=== PATIENT | male | born 2000 | race American Indian/Alaskan Native ===

== ENCOUNTER 2020-12-07 22:27 | Emergency (ER) | payer SELFPAY ==
[2020-12-08 00:44] VITALS: BP 124/56
[2020-12-08 01:23] LABS: Bilirubin,Urine NEG (Negative); Blood,Urine NEG (Negative); Color,Urine Amber (Yellow); Mucus,Urine 3+ /HPF
[2020-12-08 01:24] LABS: WBC,Urine > 182.0 /HPF (0.0-6.0)
[2020-12-08 01:24] LABS: Basophils % (Auto) 0.2 % (0.0-1.8); Eosinophils % (Auto) 0.1 % (0.0-4.3); Hematocrit 43.5 % (35.5-45.6); Hemoglobin 15.1 gm/dl (11.8-15.2); Lymphocytes # (Auto) 0.8 K/mm3 (1.2-5.4); Lymphocytes % (Auto) 8.9 % (13.4-35.0); Mean Corpuscular HGB Conc 35 % (32-34); Mean Corpuscular Volume 85 fl (84-94); Monocytes # (Auto) 0.7 K/mm3 (0.0-0.8); Monocytes % (Auto) 7.5 % (0.0-7.3); Platelet Count 163 K/mm3 (140-440); Red Blood Count 5.14 M/mm3 (3.65-5.03); Red Cell Distribution Width 14.8 % (13.2-15.2)
[2020-12-08 01:39] LABS: Alanine Aminotransferase 7 units/L (7-56); Albumin 4.7 g/dL (3.9-5); BUN/Creatinine Ratio 12; Blood Urea Nitrogen 11 mg/dL (9-20); Calcium 9.3 mg/dL (8.4-10.2); Hemolysis Index 5
--- NOTE | 2020-12-08 02:57 | Emergency Department Report ---
ED Male HPI - General Chief complaint: Abdominal Pain Stated complaint: ABD PAIN Source: patient Mode of arrival: Ambulatory Limitations: No Limitations - History of Present Illness Initial comments: Patient is a 20-year-old -[place] male with no past medical history e xcept OCD and autism who presents to the ED with complaint of acute onset persistent dysuria, suprapubic pain, hematuria, urine frequency and urgency, penile discharge, low back pain, fever and chills for the last 1 week. Patient states that the symptoms have worsened in the last 24 hours such that he is unable to sleep because of worsening chills and fever. Patient denies testicular pain, chest pain, shortness of breath, sore throat, nausea, vomiting, diarrhea, dizziness, syncope, traumatic injury or heavy lifting, hematemesis or hematochezia. MD Complaint: penile discharge, dysuria, other (Severe low back pain, chills; suprapubic pain) -: Sudden, week(s) (1) Location: penis, left flank, abdomen Radiation: other (lower back ) Severity: severe Severity scale (0 -10): 7 Quality: aching, sharp Consistency: constant Improves with: none Worsens with: urination, movement denies other symptoms, discharge, blood in urine, dysuria, fever, other (chills and low back pain). denies: swelling, mass, rash, urinary retention, nausea/vomiting, incontinence - Related Data Sexually active: Yes Previous Rx's Medication Instructions Recorded Last Taken Type Doxycycline Hyclate 100 mg PO Q12H #28 tablet. 12/08/20 Unknown Rx Ibuprofen [Motrin] 600 mg PO Q8H PRN #30 tablet 12/08/20 Unknown Rx Ondansetron [Zofran Odt] 4 mg PO Q8HR PRN #15 tab.rapdis 12/08/20 Unknown Rx Phenazopyridine [Pyridium] 200 mg PO BID #14 tab 12/08/20 Unknown Rx Allergies Allergy/AdvReac Type Severity Reaction Status Date / Time seafood Allergy Hives Uncoded 12/08/20 00:42 ED Review of Systems ROS: Stated complaint: ABD PAIN Other details as noted in HPI Constitutional: chills, fever, malaise Eyes: denies: eye pain, eye discharge, vision change ENT: denies: ear pain, throat pain Respiratory: denies: cough, shortness of breath, wheezing Cardiovascular: denies: chest pain, palpitations Endocrine: no symptoms reported Gastrointestinal: abdominal pain (suprapubic). denies: nausea, vomiting, diarrhea, constipation, hematemesis, hematochezia Genitourinary: urgency, dysuria, frequency, hematuria, discharge. denies: testicular pain, testicular mass Musculoskeletal: back pain (lower back pain). denies: joint swelling, arthralgia Skin: denies: rash, lesions Neurological: denies: headache, weakness, paresthesias Psychiatric: denies: anxiety, depression Hematological/Lymphatic: denies: easy bleeding, easy bruising ED Past Medical Hx - Past Medical History Previous Medical History?: Yes Hx Psychiatric Treatment: Yes (Autism, OCD) - Surgical History Past Surgical History?: No - Social History Smoking Status: Current Every Day Smoker Substance Use Type: Marijuana - Medications Home Medications: Home Medications Medication Instructions Recorded Confirmed Last Taken Type Doxycycline Hyclate 100 mg PO Q12H #28 tablet.dr 12/08/20 Unknown Rx Ibuprofen [Motrin] 600 mg PO Q8H PRN #30 tablet 12/08/20 Unknown Rx Ondansetron [Zofran Odt] 4 mg PO Q8HR PRN #15 tab.rapdis 12/08/20 Unknown Rx Phenazopyridine [Pyridium] 200 mg PO BID #14 tab 12/08/20 Unknown Rx ED Physical Exam - General Limitations: No Limitations General appearance: alert, in no apparent distress - Head Head exam: Present: atraumatic, normocephalic, normal inspection - Eye Eye exam: Present: normal appearance, PERRL, EOMI Pupils: Present: normal accommodation - ENT ENT exam: Present: normal exam, normal orophraynx, mucous membranes moist, TM's normal bilaterally, normal external ear exam - Neck Neck exam: Present: normal inspection, full ROM - Respiratory Respiratory exam: Present: normal lung sounds bilaterally. Absent: respiratory distress, wheezes, rales, rhonchi, chest wall tenderness, accessory muscle use, prolonged expiratory - Cardiovascular Cardiovascular Exam: Present: regular rate, normal rhythm, normal heart sounds. Absent: systolic murmur, diastolic murmur, rubs, gallop - GI/Abdominal GI/Abdominal exam: Present: soft, tenderness (Palpable suprapubic and bilateral flank tenderness), normal bowel sounds. Absent: guarding, rebound, hyperactive bowel sounds, organomegaly, mass - exam: Present: normal inspection External exam: Present: normal external exam, other (Genital exam is unremarkable) - Extremities Exam Extremities exam: Present: normal inspection, full ROM, normal capillary refill - Back Exam Back exam: Present: normal inspection, full ROM, tenderness (Palpable lumbosacr al paraspinal musculoskeletal tenderness; bilateral CVA tenderness), CVA tenderness (R), CVA tenderness (L), muscle spasm, paraspinal tenderness. Absent: vertebral tenderness, rash noted - Neurological Exam Neurological exam: Present: alert, oriented X3, CN II-XII intact, normal gait, reflexes normal - Psychiatric Psychiatric exam: Present: normal affect, normal mood - Skin Skin exam: Present: warm, dry, intact, normal color. Absent: rash ED Course Vital Signs 12/08/20 12/08/20 00:41 03:19 Temperature 100.3 F H Pulse Rate 73 Respiratory 18 18 Rate Blood Pressure 124/56 O2 Sat by Pulse 98 Oximetry ED Medical Decision Making - Lab Data Result diagrams: 12/08/20 00:56 12/08/20 00:56 - Radiology Data Radiology results: report reviewed, image reviewed Study Comments [facility] [address] [place] [address] Cat Scan Report Signed Patient: DALLAS IVAN MR#: [id number] : 2000 Acct:[id number] Age/Sex: 20 / M ADM Date: 12/07/20 Loc: ED Attending Dr: Ordering Physician: CHRIS COOPER Date of Service: 12/08/20 Procedure(s): CT abdomen pelvis wo con Accession Number(s): [id number] cc: CHRIS COOPER CT ABDOMEN AND PELVIS WITHOUT CONTRAST INDICATION / CLINICAL INFORMATION: flank pain. TECHNIQUE: Axial CT images were obtained through the abdomen and pelvis without IV contrast. All CT scans at this location are performed using CT dose reduction for ALARA by means of automated exposure control. COMPARISON: None available. FINDINGS: LOWER CHEST: No significant abnormality. LIVER: No significant abnormality. GALLBLADDER: No significant abnormality. BILE DUCTS: No significant abnormality. PANCREAS: No significant abnormality. SPLEEN: No significant abnormality. ADRENALS: No significant abnormality. RIGHT KIDNEY and URETER: No significant abnormality. LEFT KIDNEY and URETER: No significant abnormality. STOMACH and SMALL BOWEL: No significant abnormality. COLON: No significant abnormality. APPENDIX: Not well identified. PERITONEUM: No free fluid. No free air. No fluid collection. LYMPH NODES: No significant adenopathy. AORTA and ARTERIES: No significant abnormality. IVC and VEINS: No significant abnormality. URINARY BLADDER: No significant abnormality. REPRODUCTIVE ORGANS: No significant abnormality. ADDITIONAL FINDINGS: None. SKELETAL SYSTEM: No significant abnormality. IMPRESSION: Nonspecific inguinal adenopathy Signer Name: Chris Moreno MD Signed: 12/08/2020 3:26 AM Workstation Name: [id number] Transcribed By: Dictated By: Chris Moreno MD Electronically Authenticated By: Chris Moreno MD Signed Date/Time: 12/08/20325 DD/ 3 TD/TT: - Medical Decision Making This is a 20-year-old -[place] male with no past medical history except OCD and autism who presents to the ED with complaint of acute onset persistent dysuria, suprapubic pain, hematuria, urine frequency and urgency, penile discharge, low back pain, fever and chills for the last 1 week. Patient states that the symptoms have worsened in the last 24 hours such that he is unable to sleep because of worsening chills and fever. In the ED, patient is alert and oriented x3 and is not in any distress. Patient is however febrile in triage. All lab test results were reviewed and are all nonactionable except for urinalysis that showed significant infection consistent with urinary tract infection, urethritis or STD. Abdomen pelvis CT scan without contrast showed no acute abnormalities. Patient was treated in the ED for pain, also treated empirically for suspected gonorrhea urethritis with Rocephin 1 g intramuscular injection. On reevaluation, patient's pain is well controlled medication. Fever resolved with medications and patient felt better. Patient was discharged home on antibiotics, doxycycline 100 mg every 12 hours for 2 weeks, pain medications and antiemetics. Patient was advised to follow-up with the [facility] department for further STD testing including HIV and syphilis test. Patient was also advised to encourage his sexual partner to be treated at the [facility]. Patient was advised return to the ED immediately if symptoms get worse. - Differential Diagnosis Kidney stone; gonococcal urethritis; chlamydia urethritis; UTI Critical care attestation.: If time is entered above; I have spent that time in minutes in the direct care of this critically ill patient, excluding procedure time. ED Disposition Clinical Impression: Urethritis, STD (sexually transmitted disease), Acute urinary tract infection, Fever with chills Disposition: TO HOME OR SELFCARE Is pt being admited?: No Does the pt Need Aspirin: No Condition: Stable Instructions: Urinary Tract Infection, Adult, [id number], Urethritis, Adult, Fever, Adult, [id number], Gonorrhea, Chlamydia, Male, Safe Sex Additional Instructions: All lab test results were reviewed and are all nonactionable except for significant urinary tract infection consistent with urethritis possibly from chlamydia and gonorrhea. Therefore take medication with food, drink plenty of fluids and follow-up with the [facility] department in 5 to 7 days for reevaluation and STD testing including syphilis and HIV. Ensure that your sexual partner gets treated at the health appointment as well. Return to the ED immediately if symptoms get worse. Prescriptions: Doxycycline Hyclate 100 mg PO Q12H #28 tablet. Ibuprofen [Motrin] 600 mg PO Q8H PRN #30 tablet PRN Reason: Pain Phenazopyridine [Pyridium] 200 mg PO BID #14 tab Ondansetron [Zofran Odt] 4 mg PO Q8HR PRN #15 tab.rapdis PRN Reason: Nausea Referrals: [facility] [Outside] - 3-5 Days [facility] [Provider Group] - 3-5 Days Forms: STI Treatment and Prevention Time of Disposition: 02:57 Print Language: SERBIAN
[2020-12-08] MEDS ORDERED: KETOROLAC 30 MG/1 ML INJ IM ONE (02:58)
[2020-12-08] MEDS ORDERED: LIDOCAINE-MPF (1%) 10 MG/1 ML VIAL 5 ML INFILTRATI ONE (02:58)
[2020-12-08] MEDS ORDERED: ACETAMINOPHEN 500 MG TAB PO ONE (02:58)
--- NOTE | 2020-12-08 03:30 | Cat Scan Report ---
CT ABDOMEN AND PELVIS WITHOUT CONTRAST INDICATION / CLINICAL INFORMATION: flank pain. TECHNIQUE: Axial CT images were obtained through the abdomen and pelvis without IV contrast. All CT scans at [facility] location are performed using CT dose reduction for ALARA by means of automated exposure control. COMPARISON: None available. FINDINGS: LOWER CHEST: No significant abnormality. LIVER: No significant abnormality. GALLBLADDER: No significant abnormality. BILE DUCTS: No significant abnormality. PANCREAS: No significant abnormality. SPLEEN: No significant abnormality. ADRENALS: No significant abnormality. RIGHT KIDNEY and URETER: No significant abnormality. LEFT KIDNEY and URETER: No significant abnormality. STOMACH and SMALL BOWEL: No significant abnormality. COLON: No significant abnormality. APPENDIX: Not well identified. PERITONEUM: No free fluid. No free air. No fluid collection. LYMPH NODES: No significant adenopathy. AORTA and ARTERIES: No significant abnormality. IVC and VEINS: No significant abnormality. URINARY BLADDER: No significant abnormality. REPRODUCTIVE ORGANS: No significant abnormality. ADDITIONAL FINDINGS: None. SKELETAL SYSTEM: No significant abnormality. IMPRESSION: Nonspecific inguinal adenopathy Signer Name: Chris Moreno MD Signed: 12/08/2020 3:26 AM Workstation Name: [id number]
== END 2020-12-08 04:20 | disposition home or self-care (01) ==
LOC: ED 22:27
DX: N39.0 Urinary tract infection, site not specified (principal); R50.9 Fever, unspecified; A64 Unspecified sexually transmitted disease; F17.200 Nicotine dependence, unspecified, uncomplicated; F12.90 Cannabis use, unspecified, uncomplicated; Z79.899 Other long term (current) drug therapy; Z91.013 Allergy to seafood
CPT/HCPCS: 36415; 74176; 80053; 81001; 85025; 96372; 99284; J0696; J1885